=== PATIENT | male | born 1935 | race Caucasian/White ===

== ENCOUNTER 2017-08-18 08:17 | Day surgery (SDC) | payer OTHER, MEDICARE ==
[2017-08-18 08:43] LABS: MPV 9.1 fL (7.6-11.3)
[2017-08-18 09:29] LABS: Platelet Estimate ADEQ
--- NOTE | 2017-08-18 11:49 | RAD REPORT ---
EXAM DESCRIPTION: RAD - Myelography Lumbar - 08/18/2017 11:18 am CLINICAL HISTORY: ^[id number] COMPARISON: Lumbar myelogram and CT lumbar spine February 2011 TECHNIQUE: The lumbar myelogram procedure, risks and alternatives to the procedure were discussed wi th the patient in detail. After answering all questions, both oral and written consent were obtained. Time-out procedure was performed. Patient had no contraindicated allergy or medication history. Milagros ent has been off 81 milligram aspirin therapy for approximately 2 weeks. The patient was placed in an oblique prone position on the fluoroscopic table. The skin of the lower back was prepped and draped in the usual sterile fashion. After anesthetizing the skin and deeper sof t tissues with 1% lidocaine, a 22 gauge needle was advanced into the thecal sac at the L3 level. Intrathecal placement was confirmed. Approximately 10 mL of Isovue M 200 contrast material was instil led into the thecal sac. At the conclusion of the procedure the needle was withdrawn and a sterile bandage placed over the pun cture site. The patient tolerated the procedure well without immediate complications. Post-procedure care and precaution instructions were discussed with the patient before the myelogram procedure. Milagros ent was transferred to the CT suite for cross-sectional CT imaging of the lumbar spine. Patient will then be transferred to the same day surgical area for postprocedure monitoring. IMPRESSION: Successful lumbar myelogram. Procedure findings are detailed in the body of the report. Myelogram findings are incorporated into the CT lumbar spine report.
--- NOTE | 2017-08-18 13:18 | RAD REPORT ---
EXAM DESCRIPTION: CT - Spine Lumbar Wo Con - 08/18/2017 11:18 am CLINICAL HISTORY: [id number] COMPARISON: Lumbar myelogram images same date, lumbar myelogram and CT imaging February 2011. TECHNIQUE: Thin section axial imaging of the lumbar spine was performed. Sagittal and coronal recon struction images were generated and reviewed. All CT scans are performed using dose optimization technique as appropriate and may include automated exposure control or mA/KV adjustment according to patient size. FINDINGS: A very slight wedging of the L3 body is noted new from the prior examination. This is not suspected to be acute. Lumbar bodies are otherwise normal in height. Approximately 3 mm retrolisthesi s L1 on L2 is noted new from the prior examination. No lateral subluxation abnormalities. No lytic, sclerotic or expansile bony destructive process. T12 body shows slight wedge configuration also believed to be chronic. This body was not fully imaged in 2011. Large anterior spurs and bridging ossification is noted from inferior T11 through L1. This is not fully imaged on 2011 imaging but is seen as progressive. Conus terminates mid L1 level. No clumping or thickening of the cauda equina. T12-L1 level: Loss in disc height is noted. No herniation or significant disc bulge within the centra l canal. No central spinal stenosis or significant foraminal encroachment. Findings are not substanti ally different from 2011. L1-L2 level: Substantial loss in disc height is noted with a new retrolisthesis of L1. Numerous subco rtical degenerative cystic changes are present along the endplates. Posterior ligamentous thickening present. Prominent protrusion of disc material is seen across the central canal inferiorly directed a long the posterior wall of L2. Central spinal stenosis to 9 mm noted. Disc bulge and endplate spurrin g changes cause significant bilateral foraminal stenosis. There is degenerative gas in the disc space . These changes are progressive. L2-L3 level: Very slight retrolisthesis of C3 on C4 new from prior imaging. Loss in disc height prese nt. Disc bulge and endplate spurring changes present across the central canal and into each exit fora men. No significant central spinal stenosis at this level. Foraminal encroachment is present probably not clinically significant. Facet degenerative change is mild. L3-L4 level: Endplate degenerative changes and disc height loss are not substantially different from 2011. Disc bulge is minimal. Ligamentous thickening is minimal with mild facet degenerative change. N o significant central spinal stenosis and significant foraminal encroachment is not suspected. L4-L5 level: Advanced degenerative gas in the disc space and loss in disc height. Sclerotic and spurr ing changes are present throughout the endplates at this level. Numerous subcortical degenerative cys tic changes are present. Spurring and bulging of disc material is present. There is significant ligam entous thickening posterior along with facet degenerative change. There is critical central spinal st enosis at this level with little measurable CSF identifiable in the thecal sac. There is circumferent ial stenosis present effacing the CSF. Bulging disc material and endplate spurring and facet hypertro phy cause significant bilateral foraminal stenosis. These changes are all progressive from 2011. L5-S1 level: Degenerative gas in the disc space. There are endplate spurring changes seen in subcorti roge degenerative cystic changes. These changes are progressive. Significant bilateral foraminal steno sis is present. These changes are also progressive. IMPRESSION: 1. Critical L4-L5 central spinal stenosis with endplate spurring, bulging disc material and prominent posterior ligamentous thickening causing circumferential encroachment the thecal sac. C SF is fully effaced from the thecal sac at this level. 2. Significant progression of disc and endplate degenerative change at L4-L5 with significant bilater al foraminal stenosis. 3. L5-S1 foraminal stenosis progressive from prior imaging. No central spinal stenosis present. There is progressive encroachment on the thecal sac from ligamentous thickening. 4. Significantly progressive degenerative change at L1-L2. There is canal stenosis and foraminal encr oachment changes. 5. No pathologic bone process. The degenerative lumbar spine changes are significantly progressive. S light wedging of L3 is believed to be chronic. Slight wedging T12 is also believed be chronic but was not fully imaged in 2011.
== END 2017-08-18 14:15 | disposition home or self-care (01) ==
LOC: DS 08:17
PROVIDERS: ATTEND Specialist
DX: M48.062 Spinal stenosis, lumbar region with neurogenic claudication (principal); M54.5 Low back pain; M54.16 Radiculopathy, lumbar region
CPT/HCPCS: 36415; 62304; 72131; 84520; 85049; Q9967

== ENCOUNTER 2018-10-08 08:15 | Day surgery (SDC) | payer OTHER, MEDICARE ==
[2018-10-08 09:07] LABS: Albumin 3.8 g/dL (3.4-5.0); Bilirubin Total 1.2 mg/dL (0.2-1.0); Potassium 4.7 mmol/L (3.5-5.1); Protein, Total 7.7 g/dL (6.4-8.2)
[2018-10-08 09:36] LABS: Platelet Estimate ADEQ
== END 2018-10-08 10:02 | disposition home or self-care (01) ==
LOC: DS 08:15
PROVIDERS: ATTEND Specialist
DX: M54.5 Low back pain (principal); M47.896 Other spondylosis, lumbar region; Z53.8 Procedure and treatment not carried out for other reasons; R06.02 Shortness of breath; Z79.82 Long term (current) use of aspirin; Z86.73 Personal history of transient ischemic attack (TIA), and cerebral infarction without residual deficits
CPT/HCPCS: 36415; 80053; 85049

== ENCOUNTER 2018-10-15 09:42 | Day surgery (SDC) | payer OTHER, MEDICARE ==
--- NOTE | 2018-10-15 12:41 | RAD REPORT ---
EXAM DESCRIPTION: CTSpine Lumbar Wo Con10/15/2018 12:18 pm CLINICAL HISTORY: M54.5, M47.896 COMPARISON: August 2017 TECHNIQUE: Computed axial tomography lumbar spine was obtained with coronal and sagittal reconstruct ion. 12 cc 200 Isovue was administered into the thecal sac All CT scans are performed using dose optimization technique as appropriate and may include automated exposure control or mA/KV adjustment according to patient size. FINDINGS: Mild spondylosis T12-L1 10 x 6 x 15 millimeter (cc by AP by trans) broad base disc herniation extends inferiorly. The disc ex tends to the right and left of midline. It compresses thecal sac. Mild posterior subluxation of L1 on L2 with disc thinning and vacuum phenomena. Osteophytes are noted. Moderate narrowing of the neural foramina bilaterally Minimal posterior subluxation L2 on L3. Disc bulge is present. Mild encroachment upon the thecal sac. Neural foramina are patent Disc bulge and osteophytes L3-4. Mild ligamentum flavum hypertrophy. Mild encroachment upon the theca l sac. Mild to moderate narrowing of the right and mild narrowing left neural foramina Right hemilaminectomy L4-5. L4-5 disc is thinned. Vacuum phenomena. Osteophytes and facet hypertrophy seen. Thecal sac is normal caliber. Mild posterior subluxation L5 on S1. Osteophytes and disc bulge. Facet hypertrophy. Moderate narrowin g of the neural foramina bilaterally IMPRESSION: Moderate broad base disc herniation L1-2 extending inferiorly Right hemilaminectomy L4-5. Thecal sac is now normal caliber
--- NOTE | 2018-10-15 12:46 | RAD REPORT ---
EXAM DESCRIPTION: RAD - Myelography Lumbar - 10/15/2018 12:38 pm CLINICAL HISTORY: M54.5, M47.896 COMPARISON: August 2017 FINDINGS: Risks, benefits alternatives to the procedure explained to the patient and informed consen t obtained Patient was placed prone into the fluoroscopy suite. The skin and subcutaneous tissues anesthetized w ith lidocaine. Under fluoroscopic guidance a 22 gauge spinal needle was placed into the thecal sac at the L3-4 level. 12 cc Isovue 200 administered into the thecal sac. Frontal, oblique and lateral views lumbar spine obtained. Postsurgical changes of a right hemilaminectomy are present L4-5. Thecal sac is now normal caliber. Moderate structure L1-2 level extends posteriorly and inferiorly compatible with a disc herniation Fluoroscopy time 1.6 minutes. Eight fluoroscopic spot images obtained Patient experienced no immediate complication Patient was transferred to the CT suite for a CT scan IMPRESSION: Lumbar myelogram Please refer to the CT lumbar spine report for additional findings
== END 2018-10-15 15:25 | disposition home or self-care (01) ==
LOC: DS 09:42
PROVIDERS: ATTEND Specialist
DX: M54.5 Low back pain (principal); M47.896 Other spondylosis, lumbar region
CPT/HCPCS: 72131; 62304; Q9966

== ENCOUNTER 2019-11-26 04:53 | Emergency (ER) | payer OTHER, MEDICARE ==
[2019-11-26] MEDS ORDERED: MORPHINE 4 MG/ML SYR ONE (05:43)
[2019-11-26] MEDS ORDERED: ONDANSETRON 4 MG/2 ML VIAL ONE ×2 (05:43→08:03)
[2019-11-26] MEDS ORDERED: MEPERIDINE HCL 50 MG/ML ONE (07:01)
--- NOTE | 2019-11-26 07:13 | EDPHYS ---
Physician Documentation [facility] Name: David Simpson Age: 84 yrs Sex: Male : 1935 Arrival Date: 11/26/2019 Time: 04:54 Bed 7 Private MD: ED Physician Sascha Javed HPI: 11/25 06:19 This 84 yrs old Male presents to ER via EMS with complaints of Low Back Pain. pkl 06:19 The patient presents with pain that is chronic. The symptoms are located in the low pkl back. The pain radiates to the left leg. Patient said pain has gotten worse for the past few days. Patient seeing pain management Dr. Mccauley. Historical: - Allergies: 05:01 No Known Allergies; jb4 - Home Meds: 05:01 hydrocodone-acetaminophen 5-325 mg Oral tab [Active]; tamsulosin 0.4 mg oral cp24 1 cap jb4 once daily [Active]; lisinopril 40 mg Oral tab 1 tab once daily [Active]; amlodipine 10 mg tab 1 tab once daily [Active]; Jocelyn Aspirin 81mg Oral 1 tab once daily [Active]; Centrum Oral [Active]; - PMHx: 05:01 "stroke in R eye"; Diabetes - NIDDM; Hypertension; Pacemaker; ADD/ADHD; chronic back jb4 pain; hemroids; - PSHx: 05:01 back surgery; prostate; shoulder; jb4 - Immunization history:: Adult Immunizations up to date. - Social history:: Smoking status: Patient denies any tobacco usage or history of. Patient/guardian denies using alcohol, street drugs. ROS: 06:19 Eyes: Negative for injury, pain, redness, and discharge, ENT: Negative for injury, pkl pain, and discharge, Neck: Negative for injury, pain, and swelling, Cardiovascular: Negative for chest pain, palpitations, and edema, Respiratory: Negative for shortness of breath, cough, wheezing, and pleuritic chest pain, Abdomen/GI: Negative for abdominal pain, nausea, vomiting, diarrhea, and constipation. 06:19 Back: Positive for pain with movement, of the lower back. 06:19 : Negative for urinary symptoms. 06:19 MS/extremity: Negative for acute changes. 06:19 Skin: Negative for rash. 06:19 Neuro: Negative for altered mental status, loss of consciousness. Exam: 06:19 Head/Face: Normocephalic, atraumatic. Eyes: Pupils equal round and reactive to light, pkl extra-ocular motions intact. Lids and lashes normal. Conjunctiva and sclera are non-icteric and not injected. Cornea within normal limits. Periorbital areas with no swelling, redness, or edema. ENT: Nares patent. No nasal discharge, no septal abnormalities noted. Tympanic membranes are normal and external auditory canals are clear. Oropharynx with no redness, swelling, or masses, exudates, or evidence of obstruction, uvula midline. Mucous membranes moist. Neck: Trachea midline, no thyromegaly or masses palpated, and no cervical lymphadenopathy. Supple, full range of motion without nuchal rigidity, or vertebral point tenderness. No Meningismus. Chest/axilla: Normal chest wall appearance and motion. Nontender with no deformity. No lesions are appreciated. Cardiovascular: Regular rate and rhythm with a normal S1 and S2. No gallops, murmurs, or rubs. Normal PMI, no JVD. No pulse deficits. Respiratory: Lungs have equal breath sounds bilaterally, clear to auscultation and percussion. No rales, rhonchi or wheezes noted. No increased work of breathing, no retractions or nasal flaring. Abdomen/GI: Soft, non-tender, with normal bowel sounds. No distension or tympany. No guarding or rebound. No evidence of tenderness throughout. 06:19 Abdomen/GI: Exam negative for acute changes. 06:19 Back: pain, that is moderate, Straight leg raises: left lower extremity illicits pain, at 30 degrees. 06:19 : Exam negative for acute changes. 06:19 Musculoskeletal/extremity: Exam is negative for acute changes. 06:19 Skin: Exam negative for rash. 06:19 Neuro: Orientation: appropriate for stated age, Mentation: is normal, Cranial nerves: grossly normal, Motor: moves all fours. Vital Signs: 04:55 BP 154 / 81; Pulse 100; Resp 20; Temp 99.2(TE); Pulse Ox 100% on R/A; Weight 77.56 kg jb4 (R); Height 5 ft. 9 in. (175.26 cm) (R); Pain 10/10; 06:00 BP 148 / 66; Pulse 51; Resp 16; Pulse Ox 100% on R/A; jb4 07:11 BP 139 / 61; Pulse 50; Resp 18; Pulse Ox 96% on R/A; em 08:12 BP 117 / 58; Pulse 50; Resp 16; Temp 98.9; Pulse Ox 98% ; bp 04:55 Body Mass Index 25.25 (77.56 kg, 175.26 cm) jb4 MDM: 05:16 Patient medically screened. pkl 07:09 Data reviewed: vital signs, nurses notes, radiologic studies, CT scan. ED course: pkl Discussed CT Scan results with patient. Advised to follow up with pain management next week. Patient understood instructions. 11/25 05:25 Order name: CT Lumbar Spine Wo Con pkl 11/25 05:24 Order name: Saline Lock; Complete Time: 05:30 pkl Administered Medications: 05:35 Drug: Zofran (Ondansetron) 4 mg Route: IVP; Site: right forearm; rr5 06:00 Follow up: Response: No adverse reaction; Nausea is decreased jb4 05:37 Drug: morphine 4 mg {Note: rass 0.} Route: IVP; Site: right forearm; rr5 06:45 Follow up: Response: No adverse reaction; Pain is unchanged, physician notified jb4 06:54 Drug: Demerol 50 mg {Note: rass score 1.} Route: IVP; Site: right forearm; jb4 07:15 Follow up: Response: Pain is decreased bp 07:53 Drug: Zofran (Ondansetron) 4 mg Route: IVP; Site: right forearm; em 08:14 Follow up: Response: No adverse reaction bp Disposition: 11/26/19 07:12 Discharged to Home. Impression: Acute on chronic low back pain. - Condition is Stable. - Prescriptions for Cyclobenzaprine 10 mg Oral Tablet - take 1 tablet by ORAL route every 8 hours As needed; 30 tablet. - Medication Reconciliation Form, Thank You Letter, Antibiotic Education, Prescription Opioid Use form. - Follow up: Private Physician; When: 1 week; Reason: Re-evaluation by your physician. - Problem is chronic. - Symptoms are unchanged. Signatures: [facility] Sascha Valadez MD MD pkBrien Ji RN RN em Tavon Tarango RN RN jb4 Arnie Atkins RN RN rr5 Ramone Alexander RN bp Corrections: (The following items were deleted from the chart) 09:13 07:12 11/26/2019 07:12 Discharged to Home. Impression: Acute on chronic low back pain. em Condition is Stable. Forms are Medication Reconciliation Form, Thank You Letter, Antibiotic Education, Prescription Opioid Use. Follow up: Private Physician; When: 1 week; Reason: Re-evaluation by your physician. Problem is chronic. Symptoms are unchanged. pkl
--- NOTE | 2019-11-26 07:13 | ER ---
Nurse's Notes [facility] Name: David Simpson Age: 84 yrs Sex: Male : 1935 Arrival Date: 11/26/2019 Time: 04:54 Bed 7 Private MD: Diagnosis: Acute on chronic low back pain Presentation: 11/25 04:55 Chief complaint: EMS states: Pt has Chronic back pain, is reporting lower back pain jb4 that radiates to his left leg. It started to get worse yesterday, this morning at 0330 he couldn't take it anymore and took his own hydrocodone. It didn't help. Coronavirus screen: Client denies travel out of the [place] in the last 14 days. At this time, the client does not indicate any symptoms associated with coronavirus-19. Ebola Screen: No symptoms or risks identified at this time. Initial Sepsis Screen: Does the patient meet any 2 criteria? HR > 90 bpm. Yes Does the patient have a suspected source of infection? No. Patient's initial sepsis screen is negative. Risk Assessment: Do you want to hurt yourself or someone else? Patient reports no desire to harm self or others. Onset of symptoms was November 25, 2019. Transition of care: patient was not received from another setting of care. 04:55 Method Of Arrival: [facility] jb4 04:55 Acuity: ESTEFANI 3 jb4 Historical: - Allergies: 05:01 No Known Allergies; jb4 - Home Meds: 05:01 hydrocodone-acetaminophen 5-325 mg Oral tab [Active]; tamsulosin 0.4 mg oral cp24 1 cap jb4 once daily [Active]; lisinopril 40 mg Oral tab 1 tab once daily [Active]; amlodipine 10 mg tab 1 tab once daily [Active]; Jocelyn Aspirin 81mg Oral 1 tab once daily [Active]; Centrum Oral [Active]; - PMHx: 05:01 "stroke in R eye"; Diabetes - NIDDM; Hypertension; Pacemaker; ADD/ADHD; chronic back jb4 pain; hemroids; - PSHx: 05:01 back surgery; prostate; shoulder; jb4 - Immunization history:: Adult Immunizations up to date. - Social history:: Smoking status: Patient denies any tobacco usage or history of. Patient/guardian denies using alcohol, street drugs. Screenin:01 Abuse screen: Denies threats or abuse. Nutritional screening: No deficits noted. jb4 Tuberculosis screening: No symptoms or risk factors identified. Fall Risk None identified. Assessment: 05:01 General: Appears in no apparent distress. uncomfortable, Behavior is calm, cooperative, jb4 appropriate for age. Pain: Complains of pain in low back area Pain radiates to left leg Pain currently is 10 out of 10 on a pain scale. Neuro: Level of Consciousness is awake, alert, obeys commands, Oriented to person, place, time, situation. Cardiovascular: Patient's skin is warm and dry. Respiratory: Airway is patent Respiratory effort is even, unlabored, Respiratory pattern is regular, symmetrical. GI: No signs and/or symptoms were reported involving the gastrointestinal system. : No signs and/or symptoms were reported regarding the genitourinary system. EENT: No signs and/or symptoms were reported regarding the EENT system. Derm: Skin is intact, Skin is pink, warm \\T\\ dry. Musculoskeletal: Circulation, motion, and sensation intact. Range of motion: intact in all extremities. 06:00 Reassessment: Patient appears in no apparent distress at this time. Patient and/or jb4 family updated on plan of care and expected duration. Pain level reassessed. Patient is alert, oriented x 3, equal unlabored respirations, skin warm/dry/pink. Pt reports some relief in pain . 07:00 Reassessment: RECD REPORT FROM YAA HUTSON. 84YO WM P/W CHRONIC BACK PAIN, UNRELIEVED BY bp PAIN MANAGEMENT. DISPO PENDING. 07:50 Reassessment: pt became nauseous after getting sat up to get into wheelchair for em discharge, Dr. Meneses notified, received new medication orders for Zofran 4 mg. 08:12 Reassessment: PT D/C ON HOLD PENDING FAMILY FOR TRANSPORT. bp 09:00 Reassessment: Patient appears in no apparent distress at this time. Patient and/or em family updated on plan of care and expected duration. Pain level reassessed. Patient is alert, oriented x 3, equal unlabored respirations, skin warm/dry/pink. Vital Signs: 04:55 BP 154 / 81; Pulse 100; Resp 20; Temp 99.2(TE); Pulse Ox 100% on R/A; Weight 77.56 kg jb4 (R); Height 5 ft. 9 in. (175.26 cm) (R); Pain 10/10; 06:00 BP 148 / 66; Pulse 51; Resp 16; Pulse Ox 100% on R/A; jb4 07:11 BP 139 / 61; Pulse 50; Resp 18; Pulse Ox 96% on R/A; em 08:12 BP 117 / 58; Pulse 50; Resp 16; Temp 98.9; Pulse Ox 98% ; bp 04:55 Body Mass Index 25.25 (77.56 kg, 175.26 cm) jb4 ED Course: 04:54 Patient arrived in ED. cl3 04:55 Tavon Tarango, CARYL is Primary Nurse. jb4 04:58 Triage completed. jb4 05:01 Arm band placed on right wrist. EKG completed in triage. Results shown to MD. EKG jb4 completed in triage. Results shown to MD. 05:01 Patient has correct armband on for positive identification. Bed in low position. Call jb4 light in reach. Side rails up X 1. Pulse ox on. NIBP on. 05:16 Sascha Javed MD is Attending Physician. pkl 05:30 Inserted saline lock: 20 gauge in right forearm, using aseptic technique. rr5 06:24 CT Lumbar Spine Wo Con In Process Unspecified. EDMS 08:13 No provider procedures requiring assistance completed. IV discontinued, intact, bp bleeding controlled, No redness/swelling at site. Pressure dressing applied. Administered Medications: 05:35 Drug: Zofran (Ondansetron) 4 mg Route: IVP; Site: right forearm; rr5 06:00 Follow up: Response: No adverse reaction; Nausea is decreased jb4 05:37 Drug: morphine 4 mg {Note: rass 0.} Route: IVP; Site: right forearm; rr5 06:45 Follow up: Response: No adverse reaction; Pain is unchanged, physician notified jb4 06:54 Drug: Demerol 50 mg {Note: rass score 1.} Route: IVP; Site: right forearm; jb4 07:15 Follow up: Response: Pain is decreased bp 07:53 Drug: Zofran (Ondansetron) 4 mg Route: IVP; Site: right forearm; em 08:14 Follow up: Response: No adverse reaction bp Outcome: 07:12 Discharge ordered by . kathi 08:14 Discharged to home via wheelchair, with family. bp 08:14 Condition: stable 08:14 Discharge instructions given to patient, Instructed on discharge instructions, follow up and referral plans. medication usage, Demonstrated understanding of instructions, follow-up care, medications, Prescriptions given X 1. 09:13 Patient left the ED. em Signatures: Dispatcher [employer] Sascha Valadez MD MD pkl Munoz, Edgar, RN RN em Tavon Tarango RN RN jb4 Ramone Alexander RN RN Arnie Barton RN RN rr5 Drew Simpson cl3
--- NOTE | 2019-11-26 12:30 | RAD REPORT ---
EXAM DESCRIPTION: CT - Spine Lumbar Wo Con - 11/26/2019 7:16 am CLINICAL HISTORY: PAIN TECHNIQUE: Axial computed tomography images of the lumbar spine without intravenous contrast. Sagi ttal and coronal reformatted images were created and reviewed. This CT exam was performed using one or more of the following dose reduction techniques: automated exposure control, adjustment of the mA and/or kV according to patient size, and/or use of iterative reconstruction technique. COMPARISON: 10/15/2018 FINDINGS: Limitations: None. Vertebrae: Stable multilevel moderate to severe spondylosis and facet arthrosis. There is a ne w well-corticated lucency through the left paramedian L4 osteophyte since the prior exam consistent w ith subacute to chronic fracture. No acute fracture noted. There is right hemilaminectomy a change at L5-S1. Sacrum/coccyx: Visualized portions appear normal. No acute change noted. Other bones/joints: No abnormality noted. No acute fracture. Discs/spinal canal/neural foramina: Stable severe multilevel disc degeneration sparing L3-L4 and to some extent L2-L3. Diffuse mild disc bulge L5-S1. Soft tissues: Visualized portions appear normal. 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 Pleural space: There is a coarse pleural-based opacity in the left posterior costophrenic sulcus measuring 1.0 x 1.1 cm. Liver: Visualized portions appear normal. Gallbladder and bile ducts: Visualized portions appear normal. Pancreas: Visualized portions appear normal. Kidneys and ureters: Visualized portions appear normal. Bladder: Visualized portions appear normal. Reproductive: Visualized portions appear normal. IMPRESSION: 1. Stable multilevel severe degenerative changes noted. No acute fracture noted. 2. Coarse left basilar pleural-based opacity may represent atelectasis. Pulmonary nodule not excl uded. Unenhanced CT chest recommended. Electronically signed by: Eliza Leiva MD 11/26/2019 6:50 AM CDT Due to temporary technical issues with the PACS/Fluency reporting system, reports are being signed by the in house radiologist without review as a courtesy to ensure prompt reporting. The interpreting r adiologist is fully responsible for the content of the report.
[2019-11-26 17:23] VITALS: BP 117/58; TEMP 98.9; O2SAT 98
== END 2019-11-26 09:13 | disposition home or self-care (01) ==
LOC: ER 04:53
DX: M54.5 Low back pain (principal); I10 Essential (primary) hypertension; E11.9 Type 2 diabetes mellitus without complications; Z79.82 Long term (current) use of aspirin; Z95.0 Presence of cardiac pacemaker
CPT/HCPCS: 72131; 96375; 96374; 99284; J2175; J2405 ×2

== ENCOUNTER 2021-11-23 18:56 | Emergency (ER) | payer OTHER ==
--- OUTSIDE RECORDS SUMMARY | 2021-11-23 19:01 | XMS REPORT | Continuity of Care Document ---
:1935 Author Organization [facility] t Address [address] [place] [address] Care Team Providers Name Role Phone ALAYNA KRISHNA Primary Care Physician Unavailable NILTON ZELAYA Attending Clinician Unavailable Nilton Zelaya MD Attending Clinician Pob, Adc Lab Main Attending Clinician Unavailable NILTON ZELAYA Admitting Clinician Unavailable Nilton Zelaya MD Admitting Clinician Payers Payer Name Policy Type Policy Number Effective Date Expiration Date [facility] [id number] 2021 [facility] 00:00:00 PPO Problems This patient has no known problems. Allergies, Adverse Reactions, Alerts Allergy Allergy Status Severity Reaction(s) Onset Inactive Treating Comm ents Source Name Type Date Date Clinician NO KNOWN Drug Active Univers ALLERGIE Class ity of S [facility] Social History Social Habit Start Date Stop Date Quantity Comments Source Exposure to 2021-07-23 2021-08-02 Not sure [facility] SARS-CoV-2 (event) 00:00:00 10:14:00 Medica l Branch Tobacco use and 2021-08-02 2021-08-02 Never used [facility] exposure 00:00:00 00:00:00 Medical [place] Sex Ass[birth year] [facility] 00:00:00 00:00:00 Medical Branch Smoking Status Start Date Stop Date Source Never smoker [facility] Medications Ordered Filled Start Stop Current Ordering Indication Dosage Frequency Signature Comments Components Source Medication Medication Date Date Medication? Clinician (SIG) Name Name neomycin-po 2021- No PRN, Unive rs lymyxin-dex 08-08 Starting ity of amethasone 14:28: 14[place] ([place] :04 08/08/21 at [facility] roge 3.5 0928, Branch mg/g-10,000 Until Fri unit/g-0.1 08/08/21 at % 0936, ophthalmic Routine, ointment Intra-op sodium 2021- No PRN, Univers chloride 08-08 Starting ity of (NS) 14:28: 14:36 on Fri [place] injection 00 :04 08/08/21 at Medic al 0928, Branch Until Fri08/08/21 at 0936, Routine, Intra-op dexamethaso 2021- No PRN, Unive rs ne 08-08 Starting ity of (DECADRON 14:26: 14:36 on Fri [place] PHOSPHATE) 00 :04 08/08/21 at [facility] roge injection 0926, Branch Until Fri08/08/21 at 0936, Routine, Intra-op ceFAZolin 2021- No PRN, Univers (ANCEF) 08-08 Starting ity of injection 14:26: 14:36 on Fri [place] 00 :04 08/08/21 at Medical 0926, Branch Until Fri08/08/21 at 0936, JM, Intra-op carbachoL 2021- No PRN, Univers (MIOSTAT) 08-08 Starting ity o f 0.01 % 14:24: 14:36 on Fri [place] intraocular 00 :04 08/08/21 at Med ical injection 0924, Branch Until Fri08/08/21 at 0936, Routine, Intra-op water for 2021- No PRN, Univers irrigation 08-08 Starting ity of irrigation 14:14: 14:36 [place] solution 00 :04 08/08/21 at Medica l 0914, Branch Until Fri08/08/21 at 0936, Routine, Intra-op EPINEPHrine 2021- No PRN, Unive rs 1:1,000 (1 08-08 Starting ity of mg/mL) 14:14: 14:36 on Fri [place] (ADRENALIN) 00 :04 08/08/21 at [facility] ical injection 0914, Branch Until Fri08/08/21 at 0936, Routine, Intra-op chondroitin 2021- [facility] Starting ity of hyaluronate 14:14: 14:36 on Fri [place] (DUOVISC 00 :04 08/08/21 at Medica l VISCO 0914, Branch ELASTIC) Until Fri intraocular 08/08/21 at injection 0936, Routine, Intra-op balanced 2021- No PRN, Univers salt irrig 08-08 Starting ity of soln comb1 14:14: 14:36 [place] (BSS PLUS[place] 00 :04 08/08/21 at [facility] ophthalmic 0914, Branch solution Until Fri 500 mL bag 08/08/21 at 0936, Routine, Intra-op Hyaluronida 2021- No PRN, Unive rs se, Human 08-08 Starting ity o f Recomb. 14:05: 14:36 on Fri (HYLENEX) 00 :04 08/08/21 at Medic al injection 0905, Branch Until Fri08/08/21 at 0936, Routine, Intra-op eye block 2021- No PRN, Univers syringe 11 08-08 Starting ity of mL 14:05: 14:36 on Fri [place] 00 :04 08/08/21 at Medical 0905, Branch Until Fri08/08/21 at 0936, Intra-op cyclopent 2021- No .5mL 0.5 mL, Univ ers 1%-tropic 08-08 Left Eye, ity of 1%-phenyl 12:45: 13:08 ONCE, 1 [place] 2.5%-ketor 00 :00 dose, On Medic al 0.5% 08/08/21 Branch (MYDRIATIC at 0745, #5) Routine, ophthalmic DSU Pre-op solution syringe 0.5 mL lactated 2021- No 1000[facility] at [facility] 08-08 mL/hr, ity of infusion 12:45: 12:59 1,000 mL, [place] 1,000 mL 00 :00 IV Medical Infusion, Branch ONCE, 1 dose, On Fri08/08/21 at 0745, Routine, DSU Pre-op cyclopent 2021- No .5mL 0.5 mL, Univ ers 1%-tropic 08-08 06 Left Eye, ity of 1%-phenyl 12:45: 13:08 ONCE, 1 [place] 2.5%-ketor 00 :00 dose, On Medic al 0.5% Fri08/08/21 Branch (MYDRIATIC at 0745, #5) Routine, ophthalmic DSU Pre-op solution syringe 0.5 mL lactated 2021- No 1000mL at 42 Unive rs ringers IV 08-08 0601 mL/hr, ity of infusion 12:45: 12:59 1,000 mL, [place] 1,000 mL 00 :00 IV Medical Infusion, Branch ONCE, 1 dose, On Fri08/08/21 at 0745, Routine, DSU Pre-op amLODIPine 0 Yes 10mg Take 10 mg U nivers 10 mg 6-01 by mouth ity of tablet 10:08: daily. [address] lisinopriL 0 Yes 40mg Take 40 mg U nivers 40 mg 6-01 by mouth ity of tablet 10:08: daily. [address] aspirin 81 0 Yes 81mg Take 81 mg U nivers mg EC 6-01 by mouth ity of tablet 10:08: daily. [address] multivit-mi Yes 1{tbl} Take 1 Un nicci n/ferrous 6-01 tablet by ity o f fumarate 10:08: mouth [place] (MULTI 40 daily. Medical VITAMIN Branch ORAL) cholecalcif 0 Yes 3000U Take 3,000 Univers isidro, 6-01 Units by ity of vitamin D3, 10:08: mouth [place] (VITAMIN 40 daily. Medical D3) 25 mcg Patient Branch (1,000 unsure of unit) dose tablet amLODIPine 2021-0 Yes 10mg Take 10 mg U nivers 10 mg 6-01 by mouth ity of tablet 10:08: daily. [address] lisinopriL 2021-0 Yes 40mg Take 40 mg U nivers 40 mg 6-01 by mouth ity of tablet 10:08: daily. [address] aspirin 81 Yes 81mg Take 81 mg U nivers mg EC 6-01 by mouth ity of tablet 10:08: daily. [address] multivit-mi Yes 1{tbl} Take 1 Un nicci n/ferrous 6-01 tablet by ity o f fumarate 10:08: mouth [place] (MULTI 40 daily. Medical VITAMIN Branch ORAL) cholecalcif Yes 3000U Take 3,000 Univers isidro, 6-01 Units by ity of vitamin D3, 10:08: mouth [place] (VITAMIN 40 daily. Medical D3) 25 mcg Patient Branch (1,000 unsure of unit) dose tablet aspirin 81 Yes 81mg Take 81 mg U nivers mg EC 5-26 by mouth ity of tablet 10:08: daily. [address] multivit-mi Yes 1{tbl} Take 1 Un nicci n/ferrous 5-26 tablet by ity o f fumarate 10:08: mouth [place] (MULTI 12 daily. Medical VITAMIN Branch ORAL) cholecalcif Yes 3000U Take 3,000 Univers isidro, 5-26 Units by ity of vitamin D3, 10:08: mouth [place] (VITAMIN 12 daily. Medical D3) 25 mcg Patient Branch (1,000 unsure of unit) dose tablet amLODIPine Yes 10mg Take 10 mg U nivers 10 mg 5-26 by mouth ity of tablet 10:05: daily. [address] lisinopriL Yes 40mg Take 40 mg U nivers 40 mg 5-26 by mouth ity of tablet 10:05: daily. [address] Immunizations Ordered Filled Immunization Date Status Comments [facility] e Immunization Name Name SARS-COV-2 COVID-19 2021-02-02 Completed Unive rsity of PFIZER VACCINE 00:00:00 [facility] SARS-COV-2 COVID-19 2021-02-02 Completed Unive rsity of PFIZER VACCINE 00:00:00 [facility] SARS-COV-2 COVID-19 2020-05-10 Completed Unive rsity of PFIZER VACCINE 00:00:00 [facility] SARS-COV-2 COVID-19 2020-05-10 Completed Unive rsity of PFIZER VACCINE 00:00:00 [facility] SARS-COV-2 COVID-19 2020-05-10 Completed Unive rsity of PFIZER VACCINE 00:00:00 [facility] SARS-COV-2 COVID-19 2020-04-19 Completed Unive rsity of PFIZER VACCINE 00:00:00 [facility] SARS-COV-2 COVID-19 2020-04-19 Completed Unive rsity of PFIZER VACCINE 00:00:00 [facility] SARS-COV-2 COVID-19 2020-04-19 Completed Unive rsity of PFIZER VACCINE 00:00:00 [facility] Vital Signs Vital Name Observation Time Observation Value Comments Source Systolic blood 2021-08-08 14:50:00 139 mm[Hg] Univer sity of pressure [facility] [place] [facility] Diastolic blood 2021-08-08 14:50:00 66 mm[Hg] Unive rsity of [facility] Heart rate 2021-08-08 14:50:00 52 /min [facility] Respiratory rate 2021-08-08 14:50:00 18 /min [facility] Oxygen saturation in 2021-08-08 14:50:00 100 /min [facility] Arterial blood by [facility] Pulse oximetry [place] Body temperature 2021-08-08 14:33:00 36.28 Gabriela [facility] Body height 2021-07-24 19:22:00 175.3 cm [facility] Body weight 2021-07-24 19:22:00 73.5 kg [facility] BMI 2021-07-24 19:22:00 23.92 kg/m2 [facility] Systolic blood 2021-08-08 12:47:00 132 mm[Hg] Univer sity of pressure [facility] [place] [facility] Diastolic blood 2021-08-08 12:47:00 68 mm[Hg] Unive rsity of pressure [facility] [place] [facility] Heart rate 2021-08-08 12:47:00 56 /min [facility] Body temperature 2021-08-08 12:47:00 36.17 Gabriela [facility] ersity of [facility] Respiratory rate 2021-08-08 12:47:00 18 /min [facility] Oxygen saturation in 2021-08-08 12:47:00 100 /min [facility] blood by [facility] Pulse oximetry [place] Body height 2021-07-24 19:22:00 175.3 cm [facility] Body weight 2021-07-24 19:22:00 73.5 kg [facility] BMI 2021-07-24 19:22:00 23.92 kg/m2 [facility] Procedures Procedure Date / Time Performing Source Performed Clinician PHACOEMULSIFICATION OF 2021-08-08 Nilton Zelaya [facility] CATARACT WITH INTRAOCULAR 13:56:00 [facility] LENS IMPLANT POCT GLUCOSE (AUTOMATED) 2021-08-08 Nilton Zelaya [facility] 12:49:00 [facility] POCT GLUCOSE (AUTOMATED) 2021-08-08 Nilton Zelaya [facility] 12:49:00 [facility] COMP. METABOLIC PANEL (12604) 2021-08-03 Nilton Zelaya [facility] 16:07:00 [facility] CBC WITH DIFF 2021-08-03 Nilton Zelaya [facility] 16:07:00 [facility] Encounters Start End Encounter Admission Attending Care Care Encounter Source Date/Time Date/Time Type Type Clinicians Facility Department ID 2021-06-06 Outpatient [facility] [id number] Common 13:12:02 [id number] [facility] 2021-04-04 [facility] [id number] Common 13:43:48 [id number] [facility] 2021-04-04 [facility] [id number] Common 12:07:00 [id number] [facility] 2021-08-08 2021-08-08 Outpatient R GARCIA WAALL OPH [id number] Univers 07:33:00 10:00:00 NILTON ibanez [facility] 2021-08-08 2021-08-08 [facility] RIKI Zelaya [id number] Univers 07:33:00 10:00:00 Encounter Nilton CRUZ [id number] [id number] SUR[place]ICAL [id number] [facility] 071 Branch 2021-08-08 2021-08-08 [facility] [id number] Univers 08:25:00 08:57:00 Nilton CRUZ [id number] ity of [id number] SUR[place]ICAL [id number] [facility] 020 Branch 2021-08-03 2021-08-03 Straightening Machine Operator Ari, Kita Lab Main [facility] [id number] [facility] 10:15:00 10:30:00 Visit Nilton Zelaya [id number] ity [id number] PROFESSIO [id number] Il dical [address] 2021-06-07 2021-06-07 ambulatory STLMLC STLMLC [id number] Common 00:00:00 00:00:00 [facility] 2021-05-24 2021-05-24 ambulatory STLMLC STLMLC [id number] Common 00:00:00 00:00:00 [facility] 2021-01-11 2021-01-11 ambulatory STLMLC STLMLC [id number] Common 00:00:00 00:00:00 [facility] 2020-05-03 2020-05-03 Outpatient STLMLC STLMLC [id number] Common 00:00:00 00:00:00 [facility] 2020-01-27 2020-01-27 Outpatient STLMLC STLMLC [id number] Common 00:00:00 00:00:00 [facility] Results Test Description Test Time Test Comments Results Result Comments Source POCT GLUCOSE (AUTOMATED) 2021-08-08 12:52:17 Test Item Value Reference Range Interpretation Comme nts POCT GLU (test code = [id number]) 112 mg/dL 70-110 H Lab Interpretation (test code = 86838-0) [facility] 12:52:17 Test Item Value Reference Range Interpretation Comments POCT GLU (test code = [id number]) 112 mg/dL 70-110 H Lab Interpretation (test code = Abnormal 81790-8) [facility]
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
[2021-11-25 08:22] VITALS: BP 136/78; TEMP 97.9; O2SAT 100
== END 2021-11-23 23:10 | disposition home or self-care (01) ==
LOC: ER 18:56
DX: S80.812A Abrasion, left lower leg, initial encounter (principal); S60.512A Abrasion of left hand, initial encounter; W18.30XA Fall on same level, unspecified, initial encounter; I10 Essential (primary) hypertension; Z95.0 Presence of cardiac pacemaker
CPT/HCPCS: 99284